=== PATIENT | female | born 1965 | race Caucasian/White ===

== ENCOUNTER → 2020-11-02 14:24 | Outpatient (CLI) | payer OTHER, SELFPAY ==
--- NOTE | 2020-11-02 | DI.RAD.S_ITS ---
PROCEDURE: XR KNEE LT 1TO2V INDICATIONS: LEFT ANTERIOR KNEE PAIN TECHNIQUE: 3 views of the knee were acquired. COMPARISON: [facility], , KNEE 3V RIGHT, 04/12/2016, 16:19. FINDINGS: Bones: No fractures or dislocations. No suspicious bony lesions. Soft tissues: No joint effusion. No suspicious soft tissue calcifications. IMPRESSION: No trauma found. A small degree of right and left knee joint space narrowing is present at the medial compartment, indicating presence of mild degenerative osteoarthritic change. Dictated by: Reggie Alfonso M.D. on 11/02/2020 at 17:06 Approved by: Reggie Alfonso M.D. on 11/02/2020 at 17:06
== END ==
PROVIDERS: PCP Physician Assistant; Referring Provider Physician Assistant; Visit Provider Physician Assistant
DX: M25.562 Pain in left knee (principal)
CPT/HCPCS: 73560